=== PATIENT | female | born 1965 | race Caucasian/White ===

== ENCOUNTER 2017-03-14 05:20 | Day surgery (SDC) | payer OTHER ==
[~2017-03-14] VITALS: Ht 147.3 cm; Wt 68.0 kg
[2017-03-14] MEDS ORDERED: DEXAMETHASONE SOD PHOSPHATE 4 MG/ML VIAL IVP ONE (07:21)
[2017-03-14] MEDS ORDERED: THROMBIN (BOVINE) 5000 UNITS/ VIAL TP ONE (07:21)
[2017-03-14] MEDS ORDERED: SEVOFLURANE 15 MIN GAS INH ONE (07:21)
[2017-03-14] MEDS ORDERED: SUCCINYLCHOLINE CHLORIDE 20 MG/ML(QUELICIN) IVP ONE (07:21)
[2017-03-14] MEDS ORDERED: fentaNYL CITRATE/PF 100 MCG/2 ML AMP IVP ONE (07:21)
[2017-03-14] MEDS ORDERED: BISACODYL 10 MG/SUPPOSITORY RC PRN (08:30)
[2017-03-14] MEDS ORDERED: MILK OF MAGNESIA 30 ML UDC PO PRN (08:30)
[2017-03-14] MEDS ORDERED: ONDANSETRON HCL 4 MG/2 ML VIAL IVP PRN (08:30)
[2017-03-14] MEDS ORDERED: ZOLPIDEM TARTRATE 5 MG TABLET PO PRN (08:30)
[2017-03-14] MEDS ORDERED: METOCLOPRAMIDE HCL 10 MG/2 ML VIAL IVP PRN (08:30)
[2017-03-14] MEDS ORDERED: HYDROmorphone 1 MG INJ. 1 MG/ML AMPUL IVP PRN ×3 (08:30→09:00)
[2017-03-14] MEDS ORDERED: HYDROcodone/ACETAMIN 10-325 MG TAB PO PRN ×2 (08:30)
[2017-03-14] MEDS ORDERED: BACLOFEN 10 MG TABLET PO PRN (08:30)
[2017-03-14] MEDS ORDERED: HYDROmorphone 2 MG/ML VIAL IVP PRN (08:30)
[2017-03-14] MEDS ORDERED: DIPHENHYDRAMINE HCL 50 MG CAPSULE PO PRN (08:30)
[2017-03-14] MEDS ORDERED: DICL50TA9 PO (08:35)
[2017-03-14] MEDS ORDERED: LISI40TA4 PO (08:35)
[2017-03-14] MEDS ORDERED: PANT20TA2 PO (08:35)
[2017-03-14] MEDS ORDERED: GABA-531 PO (08:35)
[2017-03-14] MEDS ORDERED: KETOROLAC TROMETHAMINE 30 MG VIAL IVP PRN (09:00)
[2017-03-14] MEDS ORDERED: HYDROmorphone 2 MG/ML VIAL ONE (09:00)
[2017-03-14] MEDS ORDERED: fentaNYL CITRATE/PF 100 MCG/2 ML AMP IVP PRN (09:00)
[2017-03-14] MEDS ORDERED: MORPHINE 4 MG/ML INJ. SYRINGE IVP PRN (09:00)
[2017-03-14] MEDS ORDERED: KETOROLAC TROMETHAMINE 30 MG VIAL ONE (09:11)
[2017-03-14] MEDS ORDERED: HYDROmorphone 1 MG INJ. 1 MG/ML AMPUL ONE (09:28)
[2017-03-14 09:59] VITALS: BP_SYST 115
[2017-03-14 10:00] VITALS: BP_SYST 115
--- NOTE | 2017-03-14 10:17 | NUR ---
Post Op Admission Notes: Received patient from pacu ,s/p left sacroiliac joint fusion. Report given by soon recovery room nurse. Routine post op vital signs taken,afebrile and stable. With left hip incision derma melgar on,open to air,dry and intact. Call light with reach. Bed at lowest position.
--- NOTE | 2017-03-14 10:22 | NUR ---
Incentive spirometry: Incentive spirometer rendered by patient up to 1500ml x4.
[2017-03-14] MEDS: KCL 20 mEq in D5NS 1000 mL 1,000 ML IV SCH ×2 (11:08→22:22)
[2017-03-14] MEDS: CEFAZOLIN 1 GM IVPB PREMIX 50 ML IV SCH ×2 (11:09→16:53)
[2017-03-14] MEDS: DOCUSATE SODIUM 100 MG CAPSULE PO SCH ×2 (11:10→21:52)
--- NOTE | 2017-03-14 11:14 | NUR ---
meds: took colace po as ordered. physical therapist work with the patient earlier.
[2017-03-14 12:58] VITALS: BP_SYST 118
--- NOTE | 2017-03-14 13:00 | NUR ---
rounds: resting. finished lunch. daughter at bedside.
--- NOTE | 2017-03-14 14:57 | NUR ---
pain meds: c/o post op left incision pain and due po pain meds given per request.
[2017-03-14 16:19] VITALS: BP_SYST 109
--- NOTE | 2017-03-14 16:57 | NUR ---
iv antibiotic: due iv ancef given as ordered. patient denies any pain.
--- NOTE | 2017-03-14 19:03 | NUR ---
CLOSING NOTES: PATIENT HAD DINNER . LEFT HIP INCISION CLEAN AND DRY.CALL LIGHT WITH IN REACH.BED AT LOWEST POSITION. STABLE.
[2017-03-14 20:00] VITALS: BP_SYST 120
--- NOTE | 2017-03-14 20:54 | NUR ---
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 pt is awake alert,lung sounds are clear.encouraged to use IS at least 10x per hour while awake ,able to return demonstrate up to 1500ml. Open wound ,no active bleeding ,no redness. Both Leg on SCDs . neurovascular check with normal limites,able to wiggle toes . Instructed to call for help, calling within reach.
--- NOTE | 2017-03-14 21:52 | NUR ---
Ambulate to the bathroom: pt able to walk with assistance slowly and steady to the bathroom.Instructed to use the emergency call light in the bathroom.PT come back to bed ,bed in lowest position.medication taken. call light within reach,continue monitor.
--- NOTE | 2017-03-14 23:30 | NUR ---
RN Note Pt is sleeping comfortably in bed and no acute distress noted. IVF of D5NS + 20Meq KCL is infusing well in her left hand at 100ml/hr without any signs of infiltration. Call light is with pt and bed alarm is on. All bedside items are within pt's reach. Will continue to monitor pt.
[2017-03-15 00:09] VITALS: BP_SYST 108
[2017-03-15] MEDS: CEFAZOLIN 1 GM IVPB PREMIX 50 ML IV SCH (01:08)
--- NOTE | 2017-03-15 02:30 | NUR ---
Rounds Pt is sleeping without any distress noted. IVF is infusing well in LH. Call light is with pt and bed alarm is on.
[2017-03-15 03:33] VITALS: BP_SYST 122
--- NOTE | 2017-03-15 05:00 | NUR ---
Rounds Pt is sleeping comfortably in bed. IVF is infusing well. Fall and safety precautions are in place.
--- NOTE | 2017-03-15 06:51 | NUR ---
Closing Note Pt is awake and resting comfortably in bed. No acute distress noted at this time. All pt's needs were attended to. No fall or injury noted this shift. IVF is infusing well in LH. Call light is with pt and bed alarm is on. Will endorse to day shift nurse.
--- NOTE | 2017-03-15 08:29 | NUR ---
OPENING NOTE RECEIVED PATIENT REPORT FROM PAPER CUTTER NURSE. PATIENT RESTING COMFORTABLY. 8/10 COMPLAINTS OF PAIN, TO BE MEDICATED. PATIENTS IV RUNNING PER MD ORDERS. PATIENT AMBULATORY TO BATHROOM. PATIENTS BED IN LOWEST POSITION, CALL LIGHT WITHIN REACH, AND SIDE RAILS ARE UP. PATIENT HAS SCDS FOR DVT PROPHYLAXIS. WILL CONTINUE TO MONITOR PATIENT FOR CHANGES IN STATUS.
[2017-03-15 08:32] VITALS: BP_SYST 112
[2017-03-15] MEDS: DOCUSATE SODIUM 100 MG CAPSULE PO SCH (08:45)
--- NOTE | 2017-03-15 09:00 | NUR ---
Nutrition Update Denny Scale 18 noted. Pt admitted for Left Sacroiliac Degenerative Disease. Diet: Regular diet BMI: 31.3 kg/m2 RD to follow per nutrition care standards
--- NOTE | 2017-03-15 10:18 | NUR ---
1000 NOTE PATIENT RESTING COMFORTABLY, DAUGHTER AT BEDSIDE. COMPLAINTS OF PAIN, TOLERABLE AT THIS TIME. PATIENTS IV RUNNING PER MD ORDERS. PATIENT AMBULATORY TO BATHROOM. PATIENTS BED IN LOWEST POSITION, CALL LIGHT WITHIN REACH, AND SIDE RAILS ARE UP. PATIENT HAS SCDS FOR DVT PROPHYLAXIS. WILL CONTINUE TO MONITOR PATIENT FOR CHANGES IN STATUS. PATIENT ENCOURAGED TO CALL IF NEEDS ARISE.
[2017-03-15] MEDS: KCL 20 mEq in D5NS 1000 mL 1,000 ML IV SCH (10:22)
--- NOTE | 2017-03-15 10:55 | NUR ---
DISCHARGE PLANNING DME order for [facility]. Faxed DME order to contracted vendor [phone]. DC will follow up with chelsea Salgado . Addendum: 03/15/17 at 1223 by Yamileth THORNTON spoke with chelsea Hotl who confirmed faxed DME was received and currently being processed. Jonathon will return call to [facility] with update. Addendum: 03/15/17 at 1453 by Yamileth Newton DP spoke with Jonathon who stated pending insurance auth for DME. once auth has been received will be able to make delivery arrangements. Jonathon will keep DCP informed.
[2017-03-15 11:19] VITALS: BP_SYST 134
--- NOTE | 2017-03-15 11:50 | NUR ---
1200 NOTE PATIENT RESTING COMFORTABLY, DAUGHTER AT BEDSIDE. COMPLAINTS OF PAIN, TOLERABLE AT THIS TIME. PATIENT HAD SOME NAUSEA RESOLVED WITH ZOFRAN ADMINISTRATION. PATIENTS IV RUNNING PER MD ORDERS. PATIENT AMBULATORY TO BATHROOM. PATIENTS BED IN LOWEST POSITION, CALL LIGHT WITHIN REACH, AND SIDE RAILS ARE UP. PATIENT HAS SCDS FOR DVT PROPHYLAXIS. WILL CONTINUE TO MONITOR PATIENT FOR CHANGES IN STATUS. PATIENT ENCOURAGED TO CALL IF NEEDS ARISE.
--- NOTE | 2017-03-15 14:23 | NUR ---
1400 NOTE PATIENT RESTING COMFORTABLY, DAUGHTER AT BEDSIDE. COMPLAINTS OF PAIN, TOLERABLE AT THIS TIME. PATIENT HAD SOME NAUSEA RESOLVED WITH ZOFRAN ADMINISTRATION. PATIENTS IV RUNNING PER MD ORDERS. PATIENT AMBULATORY TO BATHROOM WITH ASSISTANCE FROM DAUGHTER. PATIENTS BED IN LOWEST POSITION, CALL LIGHT WITHIN REACH, AND SIDE RAILS ARE UP. PATIENT HAS SCDS FOR DVT PROPHYLAXIS. WILL CONTINUE TO MONITOR PATIENT FOR CHANGES IN STATUS. PATIENT ENCOURAGED TO CALL IF NEEDS ARISE. DISCHARGE ORDERS ARE IN PLACE. DC HOME IF PAIN IS CONTROLLED BY [facility]. IF STILL REQUIRING DILAUDID IV, DO NOT DISCHARGE. OKAY TO PATIENT TO SHOWER AND GET THE INCISION WET 03/16/17. NO HOT TUBS; POOLS; BATHS. FOLLOW UP WITH [facility] IN 10 DAYS APPROXIMATELY.
[2017-03-15 14:38] VITALS: BP_SYST 134
[2017-03-15] MEDS ORDERED: DOCU-144 PO (14:59)
[2017-03-15] MEDS ORDERED: HYDR-2489 PO (14:59)
[2017-03-15] MEDS ORDERED: NAPR-227 PO (15:00)
[2017-03-15] MEDS ORDERED: TIZA4TAB11 PO (15:01)
[2017-03-15] MEDS ORDERED: HYDR-1189 PO (15:01)
[2017-03-15] MEDS ORDERED: LANS30CA56 PO (15:02)
[2017-03-15] MEDS ORDERED: GABA300S PO (15:03)
[2017-03-15] MEDS ORDERED: LISI40TA4 PO (15:03)
[2017-03-15] MEDS ORDERED: DICL50TA9 PO (15:04)
--- NOTE | 2017-03-15 16:35 | NUR ---
DC PLANNING : S/W Benjamin at [facility] to get auth for FWW. I was transferred to [facility] # [phone]. Need docs faxing attn : Nel kelly Montse fax# [phone] , HP, FS, Order and Ht/wt. -- CM /dcp will fax tomorrow. Addendum: 03/16/17 at 0831 by Yamileth THORNTON Faxed requested info to insurance CM. Called and spoke with Jonathon [phone] at [facility] who will follow up on insurance auth for requested DME. Jonathon stated once auth has been received will call patient/family to make delivery arrangements. Jonathon will keep DCP updated. Addendum: 03/16/17 at 6603 by Yamileth THORNTON spoke with insurance CM Trafford at [facility] [phone] who confirmed fax was received and insurance auth is currently in process. Jong stated auth will be forwarded to [facility] when available. Addendum: 03/16/17 at 1709 by Yamileth Newton DP spoke with Jonathon at [facility] patient auth was received and patient/family will be called to make delivery arrangements for FWW.
== END 2017-03-15 15:58 | disposition home or self-care (01) ==
LOC: SDS 05:20 → SMU 05:20 → SDS 03-15 15:58
PROVIDERS: ATTEND Neurological Surgery
DX: M47.898 Other spondylosis, sacral and sacrococcygeal region (principal); I10 Essential (primary) hypertension; M19.90 Unspecified osteoarthritis, unspecified site; G89.29 Other chronic pain; K21.9 Gastro-esophageal reflux disease without esophagitis; G62.9 Polyneuropathy, unspecified; M43.28 Fusion of spine, sacral and sacrococcygeal region
CPT/HCPCS: 27280; 76001; 87081; 95940; 97116 ×2; 97162; 97530; J0330; J0690; J1100; J1170 ×3; J1885; J2405; J3010; J7120